=== PATIENT | female | born 1960 | race Caucasian/White ===

== ENCOUNTER 2016-12-20 13:26 | Emergency (ER) | payer MEDICARE, MEDICAID ==
--- NOTE | 2016-12-20 14:14 | EDM.PDOC ---
ED HPI GENERAL MEDICAL PROBLEM - General Chief Complaint: Lower Extremity Injury/Pain Stated Complaint: RIGHT FOOT PAIN RIGHT HEEL Pain Score (Numeric/FACES): 8 - Related Data Allergies Allergy/AdvReac Type Severity Reaction Status Date / Time No Known Allergies Allergy Verified 12/20/16 13:55 Home Meds: Home Meds ALPRAZolam [Xanax] 1 mg PO ASDIRECTED PRN 12/20/16 [History] Carisoprodol [Soma] 350 mg PO ASDIRECTED 12/20/16 [History] DULoxetine [Cymbalta] 120 mg PO BEDTIME 12/20/16 [History] Gabapentin [Neurontin] 900 mg PO BID 12/20/16 [History] Hydrocodone/Acetaminophen [[place] 10-325 Tablet] 1 tab PO Q4HR PRN 12/20/16 [ History] amLODIPine [Norvasc] 10 mg PO DAILY 12/20/16 [History] Past Medical History 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: Reports: Hypertension 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: Musculoskeletal History: Reports: Osteoporosis, RA Neurological History: Reports: Neuropathy, Peripheral Psychiatric History: Reports: Anxiety, Depression - Past Surgical History Musculoskeletal Surgical History: Reports: Hip Replacement Social & Family History - Family History Family Medical History: Noncontributory - Tobacco Use Smoking Status *Q: Current Every Day Smoker Years of Tobacco use: 20 Packs/Tins Daily: 1 - Caffeine Use Caffeine Use: Reports: Coffee, Tea Caffeine Use Comment: 2 cups daily - Recreational Drug Use Recreational Drug Use: No Course - Vital Signs Last Recorded V/S: Last Vital Signs Temp 36.4 C 12/20/16 13:56 Pulse 73 12/20/16 13:56 Resp 16 12/20/16 13:56 BP 140/84 12/20/16 13:56 Pulse Ox 97 12/20/16 13:56 Departure - Discharge Information Forms: ED Department Discharge
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
--- NOTE | 2016-12-20 14:52 | CR ---
EXAMINATION: Right foot HISTORY: Pain COMPARISON: None TECHNIQUE: The 2 views FINDINGS: There is no acute osseous abnormality, dislocation, or fracture identified. Bone mineraliz ation appears normal. Mild degenerative changes are noted at the first MTP joint with mild adjacent soft tissue swelling. There is a well-corticated ossific density projecting posterior to the fifth m etatarsal on the lateral image. IMPRESSION: Mild degenerative changes without acute findings.
--- NOTE | 2016-12-20 14:53 | CR ---
EXAMINATION: Left foot HISTORY: Pain COMPARISON: None TECHNIQUE: 2 views FINDINGS: There is no acute osseous abnormality, dislocation, or fracture. Bone mineralization and j oint spaces appear grossly normal. There is a well-corticated ossific density adjacent to the base o f the fifth metatarsal. Small Achilles insertional enthesophyte. Mild dorsal soft tissue swelling. IMPRESSION: Mild degenerative changes without acute findings.
--- NOTE | 2016-12-20 16:35 | CR ---
EXAMINATION: Right calcaneus HISTORY: Pain COMPARISON: None TECHNIQUE: 2 views FINDINGS/IMPRESSION: There is no acute osseous abnormality, dislocation, or fracture identified. Bon e mineralization and joint spaces appear grossly preserved.
== END 2016-12-20 17:05 | disposition home or self-care (01) ==
LOC: MW.ED 13:26
DX: M79.672 Pain in left foot (principal); M79.671 Pain in right foot; I10 Essential (primary) hypertension; F41.9 Anxiety disorder, unspecified; F32.9 Major depressive disorder, single episode, unspecified; F17.210 Nicotine dependence, cigarettes, uncomplicated; M81.0 Age-related osteoporosis without current pathological fracture; M06.9 Rheumatoid arthritis, unspecified; Z96.649 Presence of unspecified artificial hip joint; Z79.899 Other long term (current) drug therapy
CPT/HCPCS: 73620-26-LT; 73620-26-RT; 73620-LT; 73620-RT; 73650-26-RT; 73650-RT; 99283